=== PATIENT | male | born 1980 | race African-American/Black ===

== ENCOUNTER 2019-07-25 02:19 | Inpatient (IN) ==
[2019-07-25] MEDS ORDERED: TORADOL IV ONE (02:57)
[2019-07-25] MEDS ORDERED: CLINDAMYCIN 900 MG/NS 900 MG/50 ML IVPB IV ONE (02:57)
[2019-07-25] MEDS ORDERED: TYLENOL PO ONE (02:57)
[2019-07-25] MEDS ORDERED: CLINDAMYCIN 900 MG/D5W 900 MG/50 ML IVPB IV ONE (03:15)
[2019-07-25 03:43] LABS: BASO# 0.01 X1000 (0.0-0.2); BASO% 0.1 % (0.0-0.8); EOS# 0.07 X1000 (0.0-0.7); EOS% 0.5 % (0.0-10.0); HEMATOCRIT 41.3 % (42.0-52.0); HEMOGLOBIN 13.7 g/dL (14.0-18.0); IMM GRAN# 0.04 X1000 (0.0-0.04); IMM GRAN% 0.3 % (0.0-0.5); LYMPH# 0.72 X1000 (1.2-3.4); LYMPH% 5.1 % (20.5-51.1); MCH 27.5 PG (27-31); MCHC 33.2 g/dL (33-37); MCV 82.8 FL (81-99); MONO# 1.72 X1000 (0.11-0.59); MONO% 12.1 % (1.7-9.3); MPV 10.5 FL (7.4-10.4); NEUT# 11.61 X1000 (1.4-6.5); NEUT% 81.9 % (42.2-75.2); PLT 188 X1000 (130-400); RBC 4.99 XMIL (4.7-6.1); RDW 12.2 % (11.5-14.5); WBC 14.17 X1000 (4.8-10.8)
[2019-07-25 04:08] LABS: AGAP 10; BUN 8 mg/dL (8-22); CALCIUM 9.2 mg/dL (8.8-10.2); CHLORIDE 102 mmol/L (98-107); COSMO 271; ESTIMATED GFR > 60; GLUCOSE 120 mg/dL (70-104); POTASSIUM 4.3 mmol/L (3.5-5.1); SODIUM 136 mmol/L (136-145); TCO2 24 mmol/L (25-35)
[2019-07-25] MEDS ORDERED: ZOFRAN IV ONE (04:20)
[2019-07-25] MEDS ORDERED: MORPHINE IV ONE (04:20)
[2019-07-25] MEDS ORDERED: VANCOMYCIN 1 GM/NS 1 GM/250 ML IVPB IV ONE (04:20)
[2019-07-25] MEDS ORDERED: NS 1,000 ML IV ONE (04:21)
--- NOTE | 2019-07-25 04:22 | PROVIDER DOCUMENTATION ---
HPI-Musculoskeletal Pain/Inj - GENERAL Chief Complaint: Extremity Pain Stated Complaint: ARM INJURY Time Seen by Provider: 07/25/19 02:48 Source: patient - HX OF PRESENT ILLNESS-MUSKULOSKELTAL Nature of Presenting Problem: Patient begain with fever/chills and ST 2-3 days ago, then developed left wrist pain and swelling. Initially, he went to urgent care, where they diagnosed him influenza without doing any swabs/labs. He then went to [facility] ER yesterday morning, had a workup including swabs/labs/CXR and was diagnosed as cellulitis to left wrist and was placed on keflex. He states his wrist has gotten more swollen and he continue to have ST, fever/chills/body aches. He has no known exposure to Covid 19. Stopped taking Tamiflu the day of his visit to [place]. He is right hand dominant, has no history of trauma or injury to left hand/arm. Denies IVDA. Denies penile discharge. Has never had these symptoms before. No other joint pain/swelling. He had blood cultures x 2 done at [place] yesterday morning. Quality of Pain: reports: aching, sharp Severity in ED: severe Onset/Duration: gradual, 2 days ago Timing: still present, constant, getting worse Modifying Factors: improves with: immobilization. worse with: movement, palpation Any recent injury?: No Locality of Occurance: Home Similar Symptoms Previously?: No Recently seen or treated by another doctor?: Yes (Urgent care and [facility]) Review of Systems - Adult - REVIEW OF SYSTEMS - ADULT Constitutional: reports: see HPI, chills, fever Eyes: reports: no symptoms reported Ears, Nose, Mouth & Throat: reports: see HPI, throat pain. denies: hoarseness, throat swelling Cardiovascular: reports: no symptoms reported Respiratory: reports: no symptoms reported Gastrointestinal: reports: no symptoms reported Genitourinary: reports: no symptoms reported. denies: dysuria, discharge, other (no STDs) Musculoskeletal: reports: see HPI, joint pain (left wrist), joint swelling (left wrist), muscle aches. denies: bone pain, back pain, frequent leg cramps, muscle weakness, neck pain Integumentary: reports: no symptoms reported Neurological: reports: no symptoms reported Psychiatric: reports: no symptoms reported Endocrine: reports: no symptoms reported Hematologic/Lymphatic: reports: no symptoms reported Allergic/Immunologic: reports: no symptoms reported All Other Systems: Reviewed and Negative Past History - Adult - PAST MEDICAL HISTORY-ADULT Review of Records: reports: Old Records Reviewed (Mostly from yesterday's visit to [facility], normal labs, normal CXR, negative strep and flu. Blood cultures checked and are currently negative.), Nursing Assessment Review, Medications Reviewed, Social history reviewed & non-contributory. Major Childhood Illnesses: reports: denies history Cardiovascular: reports: denies history Respiratory: reports: denies history Gastrointestinal: reports: denies history Obstetrical/Gynecological: reports: denies history Genitourinary: reports: denies history Musculoskeletal: reports: denies history Neurological: reports: headaches/migraines Endocrine/Immune: reports: denies history Other Conditions: reports: denies history - PRIOR SURGERIES/PROCEDURES Surgical/Procedure History: reports: none - FAMILY HISTORY Family History: HTN Physical Exam-Injury Related - Physical Exam-Injury Related Initial Vital Signs Reviewed: Yes (febrile, ow/ normal) General Appearance: appears well, alert, no apparent distress (but uncomfortable appearing) Eyes: PERRL/EOMI, pink conjunctivae Head, Ears, Nose, Mouth & Throat: normocephalic/atraumatic, moist mucous membranes, pharyngeal erythema Neck: full range of motion, supple, normal inspection. negative: pain on move ment Respiratory: chest non-tender, lungs clear, normal breath sounds, no pleuratic chest pain, no respiratory distress, no accessory muscle use Cardiovascular: normal peripheral pulses, regular rate, rhythm, no edema, no gallop, no JVD, no murmur Peripheral Pulses: radial (R): 2+, radial (L): 2+ Abdominal Exam: non tender, soft. negative: distended Lymphatic: no adenopathy Back Exam: normal inspection, no CVA tenderness, no vertebral tenderness. negative: decreased range of motion Extremity: normal gait, no pedal edema, no calf tenderness, normal capillary refill, erythema (left wrist/dorsum of hand), inflammation, joint effusion (left wrist), tenderness (with any palpation or range of motion to left wrist, hand and fingers.). negative: pulse deficit, slow capillary refill Integumentary: normal color, warm/dry Neurologic: pants closer II-XII nml as tested, grossly normal, no motor/sensory deficits Psych/Mental Status: normal mood/affect, normal thought content, normal thought process, oriented x 3 - Glascow Coma Score Best Eye Response ([place]): (4) open spontaneously Best Verbal Response ([place]): (5) oriented Best Motor Response ([place]): (6) obeys commands Progress - PLAN OF CARE/RESULTS Progress/Plan/Lab Results: Vital Signs - 8 hr 07/25/19 02:26 Temperature 101.6 F H Pulse Rate 88 Respiratory Rate 15 Blood Pressure 136/90 O2 Sat by Pulse Oximetry 100 Laboratory Results - last 24 hr 07/25/19 07/25/19 07/25/19 03:13 03:13 03:13 WBC 14.17 H RBC 4.99 Hgb 13.7 L Hct 41.3 L MCV 82.8 MCH 27.5 MCHC 33.2 RDW Std Deviation 12.2 Plt Count 188 MPV 10.5 H Immature Gran % (Auto) 0.3 Neut % (Auto) 81.9 H Lymph % (Auto) 5.1 L Randolph % (Auto) 12.1 H Eos % (Auto) 0.5 Baso % (Auto) 0.1 Immature Gran # (Auto) 0.04 Neut # (Auto) 11.61 H Lymph # (Auto) 0.72 L Randolph # (Auto) 1.72 H Eos # (Auto) 0.07 Baso # (Auto) 0.01 Sodium 136 Potassium 4.3 D Chloride 102 Carbon Dioxide 24 L Anion Gap 10 BUN 8 Creatinine 1.0 Estimated GFR/1.73 m2 > 60 BUN/Creatinine Ratio 8 Glucose 120 H Calculated Osmolality 271 Calcium 9.2 C-Reactive Prot, Quant 176.41 H Plasma Lactate 07/25/19 03:13 WBC RBC Hgb Hct MCV MCH MCHC RDW Std Deviation Plt Count MPV Immature Gran % (Auto) Neut % (Auto) Lymph % (Auto) Randolph % (Auto) Eos % (Auto) Baso % (Auto) Immature Gran # (Auto) Neut # (Auto) Lymph # (Auto) Randolph # (Auto) Eos # (Auto) Baso # (Auto) Sodium Potassium Chloride Carbon Dioxide Anion Gap BUN Creatinine Estimated GFR/1.73 m2 BUN/Creatinine Ratio Glucose Calculated Osmolality Calcium C-Reactive Prot, Quant Plasma Lactate 1.3 Orders Category Date Time Status Saline Loc NOW Care 07/25/19 02:57 Active WRIST COMPLETE LEFT [RAD] Stat Exams 07/25/19 02:40 Taken BMP [BASIC METABOLIC PANEL] [CHEM] Stat Lab 07/25/19 03:13 Completed C REACTIVE PROT QUANT [CHEM] Stat Lab 07/25/19 03:13 Completed CBC WITH ELECTRONIC DIFF [HEME] Stat Lab 07/25/19 03:13 Completed CHLAMYDIA AND GC BY PCR URINE [HH] Stat Lab 07/25/19 04:58 Received LACTATE, PLASMA [CHEM] Stat Lab 07/25/19 03:13 Completed URINALYSIS W/POSS RFLX CULT [URINALYSIS] Stat Lab 07/25/19 04:21 Uncollected 0.9% Sodium Chloride Inj [Ns] 1,000 ml Med 07/25/19 04:21 Discontinued IV 999 mls/hr Acetaminophen [Tylenol] Med 07/25/19 02:57 Discontinued 1,000 mg PO NOW ONE Clindamycin 900 mg/D5w Med 07/25/19 03:15 Discontinued 900 mg in 50 ml IV NOW Ketorolac [Toradol] Med 07/25/19 02:57 Discontinued 30 mg IV NOW ONE Morphine Med 07/25/19 04:20 Discontinued 4 mg IV NOW ONE Ondansetron [Zofran] Med 07/25/19 04:20 Discontinued 4 mg IV NOW ONE Vancomycin 1 gm/Ns Med 07/25/19 04:20 Discontinued 1 gm in 250 ml IV NOW Result Diagrams: 07/25/19 03:13 07/25/19 03:13 - REASSESSMENT Reassessment #1 Time Reassessed: 04:52 Status: improving (After IVF bolus. Also given acetaminophen for fever, IV toradol, morphine/zofran and IV vanc/clindamycin. Blood cultures not repeated since they are already in lab. Will ask hospitalist to admit with orthopedic consultaiton) - XRAY 1 XRAY: Left XRAY Study: Wrist Impression: Abnormal (mild STS, no gas, no fracture, no FB. Read by me at 0400) - CONSULTS/PCP/HOSPITALIST Notification #1 *Consult/PCP/Hospitalist*: Adi paged [phone] Time Discussed: 05:34 Consult Disposition: Will see in ED, Admit #2 Consult: Tisha paged [phone] Time Discussed: 05:39 Consult Disposition: other (will see in consult) Departure - Departure Date of Disposition Decision: 07/25/19 Time of Disposition Decision: 04:53 DIAGNOSIS: Fever in adult, Cellulitis of left wrist Septic arthritis of wrist, left Qualifiers: Septic arthritis organism: due to unspecified organism Qualified Code(s): M00.9 - Pyogenic arthritis, unspecified Disposition: ADMITTED INPATIENT 09 Certified Medical Emergency: Emergent Condition: Fair Referrals and Follow-Ups: Vaibhav Rangel MD [Primary Care Provider] - - Critical Care Note This patient required my direct & personal management of CC.: No Attestation - Physician/ KEAGAN Attestation Patient care was provided by Advanced Practice Provider:: No The physician spent face to face time with patient:: Yes Advanced Practice Provider documentation review:: Supervising physician onsite and consulted in the evaluation and care of this patient. The physician did have a face to face encounter with the patient.
--- NOTE | 2019-07-25 06:05 | Diag Imaging Result Doc PS360 ---
EXAM: WRIST COMPLETE LEFT HISTORY: swelling TECHNIQUE: Three views COMPARISON: None. FINDINGS: No fracture. No dislocation. No prominent joint space narrowing. IMPRESSION: No acute bony injury. Electronically signed by Fei Galan 07/25/2019 6:02 AM
--- NOTE | 2019-07-25 07:56 | HISTORY AND PHYSICAL ---
PRIMARY CARE PROVIDER: Dr. Vaibhav Rangel. DATE AND TIME: 07/25/2019 at 0550. CHIEF COMPLAINT: Left arm pain. HISTORY OF PRESENT ILLNESS: Mr. Hernandez is a 39-year-old male who presented to the ER this evening with complaints of left arm pain and swelling. The patient states that 2 days ago on Sunday, that would be 07/21 that he began having some swelling and erythema of his left wrist. He also reports at that time that he did have fever, body aches, and chills. According to the ER note from 07/23, he reported at that time that he was having a sore throat though the patient did not report that to us this evening. He denied having any headache, cough, shortness of breath, or respiratory symptoms. He stated on Sunday that he did go to Urgent Care, and they did not swab him for the flu though diagnosed him with the flu and gave him a prescription for Tamiflu. The patient's hand did continue to have worsening swelling and erythema. He also reported that he had one vomiting episode after being given a prescription for Tamiflu. He reported that he took the medicine, became nauseous, and vomited. Due to his worsening symptoms, he did present to the ER on 07/23, which would be yesterday on early in the morning at 0454 with similar symptoms of left wrist pain, swelling, erythema, fever, body aches, and chills. He was given a prescription for Keflex, and was discharged home. They did test him for influenza and strep, which were both negative. The patient reports that he did stop taking the Tamiflu after he tested negative for the flu when he was seen at [place]. He presents today with continued symptoms of left arm pain, swelling, erythema, as well as fever, body aches, and chills. He denies any injury to his left hand. He denies any recent wounds, abrasions, lacerations, or any bites of any kind. He denies any insect, animal, or human bite. He also denies any recent IV or blood venous draws from his hand as well. He denies any headache or dizziness. He also denies any chest pain, cough, respiratory symptoms, or shortness of breath. He denies any abdominal pain. He denies any nausea, vomiting, or diarrhea at present. He denies any dysuria. Other than his left hand pain, swelling, and erythema, he denies any other pain, numbness, tingling or swelling is in his other extremities. Upon evaluation in the ER, they did perform a CBC, which did show leukocytosis with white blood cell count of 14,170. Chemistries were pretty unremarkable except for that his C-reactive protein was 176.41. He did have a temperature of 101.6 degrees in the ER. Blood cultures have been ordered. He has been given initial antibiotics of clindamycin and vancomycin. Pending diagnostic studies at this time include chlamydia and GC by PCR urine as well as urinalysis with possible reflex culture. The patient was sitting up in bed and was nontoxic in appearance. He was awake, alert, and able to answer questions appropriately and follow commands appropriately. He denies any recent travel out of the country, state, or even out of the formerly [facility]. He denies being around anyone with flu-like or respiratory symptoms, or anyone who has been exposed to or has been diagnosed with COVID 19. The patient will be placed on the medical floor with telemetry. REVIEW OF SYSTEMS: A 14 point review of systems was conducted with the patient. All were negative except for pertinent positives mentioned above in HPI. PAST MEDICAL HISTORY: The patient denies any medical problems. PAST SURGICAL HISTORY: The patient denies any previous surgeries. SOCIAL HISTORY: The patient reports he smokes half a pack of cigarettes per day, and has done so for 3 years. He only reports occasional alcohol use. He denies any illicit drug use. FAMILY HISTORY: Positive for his mother having a history of hypertension. ALLERGIES: Patient reports no known allergies. HOME MEDICATIONS: The patient denies any regular home medication or prescription use. DIAGNOSTIC DATA: [place] [address], hemoglobin 13.7, hematocrit 41.3, and platelet count is 188,000. Sodium 136, potassium 4.3, chloride 102, serum bicarbonate is 24, BUN 8, and creatinine 1. GFR is greater than 60, glucose 120, and calcium 9.2. C-reactive protein is 176.41. Plasma lactate is 1.3. Left wrist x-ray showed no acute bony injury. PHYSICAL EXAMINATION: VITAL SIGNS: Heart rate 88, respirations 15, blood pressure 136/90, and oxygen saturation is 100% on room air. GENERAL: Mr. Hernandez is a pleasant 39-year-old male who is resting on the ER stretcher. He is in no acute distress. He was awake, alert, and able to answer questions appropriately. HEENT: Head is atraumatic, normocephalic. Pupils equal, round, and reactive to light. Oral mucosa moist. Oropharynx clear. Oral mucosa is moist. NECK: Supple. Trachea midline. CARDIOVASCULAR: Patient has S1-S2 present. No murmurs, gallops, or rubs appreciated with a regular rate and rhythm. PULMONARY: Patient has symmetrical chest expansion bilaterally. Lung sounds are clear to auscultation in bilateral full jacob. ABDOMEN: Soft, nontender, and nondistended. Bowel sounds are present in all 4 quadrants, and were normoactive. EXTREMITIES: No cyanosis noted. The patient does have erythema and swelling noted to his left wrist and proximal hand. This area is warm to the touch. He did report pain and tenderness upon palpation. Though capillary refill distal to this area in his nail bed of his left fingers was less than 3. Radial and pedal pulses are 2+ bilaterally. Pulse, motor and sensory is intact in all extremities. The patient can move his fingers and does have good sensation intact in his left hand distal to area of swelling and erythema. INTEGUMENTARY: The patient's skin is pink, warm, and dry. He does have the area of erythema which is noted and described in the above extremities exam. NEUROLOGICAL: Patient is alert and oriented to person, place, time, and situation. There are no focal neurological deficits noted. ASSESSMENT AND PLAN: 1. Cellulitis of the left hand/wrist. For this, blood cultures have been obtained. We will place him with antibiotic coverage of vancomycin IV. We have placed orders for the area of erythema to be outlined with a surgical pen so that we can monitor his erythema and swelling. We will provide p.r.n. pain medication of Toradol IV. We will provide p.r.n. antiemetics with Phenergan. We will provide some gentle intravenous hydration with normal saline at 125 mL/h. 2. Leukocytosis. This is likely secondary to his cellulitis. We will continue treatment as mentioned above in #1. We will continue to rule out other sources of infection. 3. Nicotine dependence. We will continue to application counselor the patient on the importance of smoking cessation throughout his admission and upon discharge. 4. Resuscitation status. We did discuss with the patient his wishes for his resuscitation status. He does wish to place to full code. Orders for this have been placed in the patient's chart. 5. Deep vein thrombosis prophylaxis is provided with Lovenox 40 mg subcutaneous q.24 hours. The patient will be placed on the medical floor of telemetry. He will have vital signs q.8 hours. He will be on a regular diet. We will do strict intake and output. We will repeat a CBC and BMP tomorrow morning. We have ordered a hemoglobin A1c given the patient's glucose was elevated at 120. Further orders and recommendations pending hospital course, diagnostic studies, and physician evaluation. Dictated by STEPHANY Power for Alonso Waggoner MD cc: Vaibhav Rangel MD MTDD
[2019-07-25] MEDS ORDERED: VANCOMYCIN IV PER PHARMACY MISC SCH (08:02)
[2019-07-25] MEDS ORDERED: SODIUM CHLORIDE 0.9% INJ PRN (08:02)
[2019-07-25] MEDS ORDERED: NS 1,000 ML IV SCH (08:02)
[2019-07-25] MEDS ORDERED: PHENERGAN IV PRN (08:02)
[2019-07-25 08:20] LABS: HEMOGLOBIN A1C 5.6 % (4.8-6.0)
[2019-07-25] MEDS: ROCEPHIN 1 GM in NS 50 ML IV SCH (08:58)
[2019-07-25] MEDS: LOVENOX SUBQ SCH (08:58)
[2019-07-25] MEDS: TORADOL IV PRN (08:59)
[2019-07-25] MEDS ORDERED: NORCO-7.5 PO PRN (11:23)
[2019-07-25 11:48] LABS: URINE SOURCE CLEAN CATCH
[2019-07-25 11:54] LABS: BILIRUBIN URINE NEGATIVE (NEGATIVE); BLOOD URINE NEGATIVE (NEGATIVE); COLOR YELLOW; GLUCOSE URINE NEGATIVE (NEGATIVE); KETONE URINE NEGATIVE (NEGATIVE); LEUKOCYTES URINE NEGATIVE (NEGATIVE); NITRITE URINE NEGATIVE (NEGATIVE); PH URINE 6.5; PROTEIN URINE TRACE mg/dL (NEGATIVE); SP GRAVITY URINE 1.016; TURBIDITY URINE CLEAR (CLEAR); UROBILINOGEN URINE 2 mg/dL (NORMAL)
[2019-07-25 11:55] LABS: UR EPITHELIAL CELLS <10 /HPF (<10); URINE BACTERIA NEGATIVE /HPF; URINE WBC <10 /HPF (<10)
[2019-07-25 12:08] LABS: UR AMPHETAMINES QUAL NONE DETECTED (NONE DETECT); UR BARBITUATES QUAL NONE DETECTED (NONE DETECT); UR BENZODIAZEPIN QUAL NONE DETECTED (NONE DETECT); UR CANNABINOIDS QUAL NONE DETECTED (NONE DETECT); UR COCAINE QUAL NONE DETECTED (NONE DETECT); UR METHADONE QUAL NONE DETECTED (NONE DETECT); UR OPIATES QUAL PRESUMPTIVE POSITIVE (NONE DETECT); UR OXYCODONE QUAL NONE DETECTED (NONE DETECT); UR PCP QUAL NONE DETECTED (NONE DETECT)
[2019-07-25] MEDS: VANCOMYCIN 2 GM in NS 500 ML IV SCH ×2 (12:56→23:59)
--- NOTE | 2019-07-25 13:04 | PROGRESS NOTE ---
DATE: 07/25/2019 INTERVAL HISTORY: The patient still with pretty significant left wrist/hand pain. Left dorsal wrist erythematous from just proximal to the wrist to just proximal to the fingers. Exquisitely tender on squeeze of the wrist. Slightly tender on squeeze of the more distal hand. No clear fluctuance or induration. The patient reports pain but no other issues currently. Denies any respiratory symptoms. We will continue antibiotics with vancomycin and Rocephin. Orthopedic Surgery consulted on admission to evaluate the joint, but I doubt that he has enough fluid on there for them to tap. We will see if they have any further recommendations. The patient's flu test was negative, so we will not continue Tamiflu. [facility]
[2019-07-25] MEDS: PERCOCET-10 PO PRN ×2 (14:28→19:57)
[2019-07-26] MEDS: PERCOCET-10 PO PRN ×6 (00:19→22:31)
[2019-07-26 07:31] LABS: HEMATOCRIT 36.6 % (42.0-52.0); HEMOGLOBIN 12.2 g/dL (14.0-18.0); MCHC 33.3 g/dL (33-37); MCV 83.9 FL (81-99); MPV 9.6 FL (7.4-10.4); RBC 4.36 XMIL (4.7-6.1); RDW 12.5 % (11.5-14.5); WBC 11.8 X1000 (4.8-10.8)
[2019-07-26 07:53] LABS: AGAP 8; BUN 9 mg/dL (8-22); CALCIUM 8.8 mg/dL (8.8-10.2); CHLORIDE 99 mmol/L (98-107); COSMO 269; CREATININE 0.8 mg/dL (0.7-1.2); ESTIMATED GFR > 60; GLUCOSE 102 mg/dL (70-104); POTASSIUM 3.9 mmol/L (3.5-5.1); SODIUM 135 mmol/L (136-145); TCO2 28 mmol/L (25-35)
[2019-07-26] MEDS: LOVENOX SUBQ SCH (08:19)
[2019-07-26] MEDS: ROCEPHIN 1 GM in NS 50 ML IV SCH (08:19)
[2019-07-26] MEDS: VANCOMYCIN 2 GM in NS 500 ML IV SCH ×2 (12:08→22:50)
[2019-07-26] MEDS: ZOSYN 3.375 GM in NS 50 ML IV SCH ×3 (12:08→22:49)
--- NOTE | 2019-07-26 12:45 | PROGRESS NOTE ---
DATE: 07/26/2019 INTERVAL HISTORY: Patient is complaining of increased left hand swelling. Pain roughly similar to yesterday and adequately controlled with Percocet. Afebrile overnight and no new complaints. REVIEW OF SYSTEMS: Twelve point review of systems negative except as per interval history. LABORATORY DATA: WBC 11.8, hemoglobin 12.2, hematocrit 36.6, platelets 189,000. Sodium 135, potassium 3.8, BUN 9, creatinine 0.8. VITAL SIGNS: T-max 99.2 degrees, pulse 90, respirations 16, blood pressure 123/79, O2 saturation 98% on room air. PHYSICAL EXAMINATION: General: No acute distress. Vital signs: As above. HEENT: Normocephalic, atraumatic. Moist mucous membranes. No cervical adenopathy. Cardiovascular: Regular rate and rhythm. No murmurs noted. Pulmonary: Clear to auscultation bilaterally. No wheezing, rales, or rhonchi. Abdomen: Soft, nontender, nondistended. Bowel sounds positive. Extremities: Peripheral pulses intact. No clubbing or cyanosis. Continued area of erythema on the left dorsal hand from just proximal to the wrist to approximately the first knuckle of the fingers. The area of erythema has not really changed, but it is more edematous. No discrete fluid pocket identified. Continues to have pain with squeeze of wrist joint and to a lesser extent, the MCP joints. Neurologic: Cranial nerves grossly intact. No focal deficits. Psychiatric: Normal mood and affect. Awake, alert, oriented x3. ASSESSMENT AND PLAN: 1. Left hand cellulitis, possible left wrist pyogenic arthritis. The patient admitted with left hand erythema, warmth, swelling. The area of erythema is no worse today but he is little more swollen. Tenderness about the same. We will go ahead and change Rocephin to Zosyn. We will continue vancomycin. Per the ER note, Orthopedics was supposedly contacted from the ED, but I have not seen any notes from them so this may have been in error. We will go ahead and place a consult to them to make sure they do not think he needs needle aspiration or operative intervention. 2. Tobacco use. Patient has been counseled on cessation. He denies the need for a nicotine patch. 3. Hyperglycemia, likely reactive postprandial as the patient's A1c was within normal limits.
[2019-07-26] MEDS: TORADOL IV PRN (21:17)
--- NOTE | 2019-07-26 21:42 | CONSULTATION ---
DATE OF CONSULTATION: 07/25/2019 CHIEF COMPLAINT: Left hand cellulitis. HISTORY: 39-year-old black male who was admitted through the emergency department on Sunday for evaluation of his left hand. The patient states that he initially started having fever and body aches, chills but no cough or shortness of breath and was seen in Urgent Care where he tested positive for type A flu. He was started on Tamiflu but continued to feel bad and later was seen at [place] where he had repeat testing done and was found to be negative for the flu. He was started on Keflex because of left hand cellulitis. That had worsened and he was ultimately admitted to the hospital admitted on IV vancomycin. He feels like that he has not significantly improved. He does have swelling on the dorsum of his hand. His C-reactive protein is 176. He was noted to be febrile in the ER. PAST MEDICAL HISTORY: None. PAST SURGICAL HISTORY: None. ALLERGIES: None reported. FAMILY HISTORY/SOCIAL HISTORY: Mother has hypertension. The patient does not report any exposure to COVID-19. He does smoke half pack cigarettes a day for the last 3 to 4 years. Occasional alcohol. No illicit drug use reported. EXAM: Pleasant male who is in no distress. He has ear buds in his ear when I entered the room was watching movie on his phone. HEENT: Conjunctivae pink. Mucous membranes are moist. His neck is supple without JVD. Heart is regular with a controlled rate. Respirations are nonlabored. His abdomen is soft. His left hand does reveal soft tissue swelling on the dorsum of his hand. He has no tenderness along his flexor tendons. There is no signs of flexor tenosynovitis. He has no pain to palpation of the thenar and hypothenar areas of his volar aspect of his hand. The soft tissue swelling is confined to the dorsum of his hand. It extends to the level of the wrist but not above. There is some warmth and cellulitis changes about this area. His fingers are swollen but I can fully extend all digits. He does have difficulty with complete flexion. ASSESSMENT/PLAN: Left hand cellulitis on the dorsum of the hand. He has some bonner around the redness. He has not spread outside this area. He is currently on vancomycin as well as clindamycin. I would like to get an MRI of his hand to evaluate for an abscess to see if there is anything that is drainable. This order will be placed and await results. Continue antibiotics. cc: Thierno Bhagat, DO
--- NOTE | 2019-07-26 22:52 | HISTORY AND PHYSICAL ---
ADDENDUM CHIEF COMPLAINT: Left forearm pain. HISTORY OF PRESENT ILLNESS: Patient is a 39-year-old who described left forearm pain that started of 2 days duration. Also with associated redness as well and swelling of that left arm. Denies any swelling in other parts of the body. Denies any history of trauma. Denies any prior wound or discharge Patient denies any previous history of similar illness. Agree with history and physical note done by nurse practitioner and also other parts of the history and physical dictated by the nurse practitioner. PHYSICAL EXAMINATION: GENERAL: A middle-aged man in no acute respiratory distress. HEENT: Not pale. Anicteric. CARDIOVASCULAR: S1, S2 heard. No murmurs, rubs or gallop. LUNGS: Good entry bilaterally. No wheeze. No crepitations or added sound. EXTREMITIES: The left arm there is swelling at the left forearm from over the wrist extending proximally to the lower third of the forearm. There is erythema around the area. It is tender to touch as well. ASSESSMENT: A 39 year old who presented with left forearm pain of 2 days duration. Examination shows left forearm redness, swelling and tenderness. ACUTE DIAGNOSIS: Cellulitis of the left forearm over the wrist area. PLAN: Start patient on IV antibiotics, IV vancomycin. I expect improvement in leukocytosis with IV antibiotics. We will jae the area of the cellulitis. There does not appear to be any drainable abscess or fluid at this time. As such, do not think Orthopedics would be able to contribute anything additional to the management of the patient. However, ER physician already consulted Orthopedics before hospitalist team was called. We will continue patient's other home medications. We will also hydrate patient as well gentle hydration with IV fluid DVT prophylaxis is Lovenox. CODE STATUS: Full code. DISPOSITION: Admit patient to med-surg. We will discharge when medically stable. [facility]
[2019-07-27] MEDS: TORADOL IV PRN (01:47)
[2019-07-27] MEDS: PERCOCET-10 PO PRN ×5 (02:55→22:44)
[2019-07-27] MEDS: ZOSYN 3.375 GM in NS 50 ML IV SCH ×4 (05:01→22:44)
[2019-07-27 07:50] LABS: BASO# 0.04 X1000 (0.0-0.2); BASO% 0.4 % (0.0-0.8); EOS# 0.26 X1000 (0.0-0.7); EOS% 2.9 % (0.0-10.0); HEMATOCRIT 38.7 % (42.0-52.0); HEMOGLOBIN 12.8 g/dL (14.0-18.0); IMM GRAN# 0.03 X1000 (0.0-0.04); IMM GRAN% 0.3 % (0.0-0.5); LYMPH# 0.88 X1000 (1.2-3.4); LYMPH% 9.8 % (20.5-51.1); MCH 27.7 PG (27-31); MCHC 33.1 g/dL (33-37); MCV 83.8 FL (81-99); MONO# 1.09 X1000 (0.11-0.59); MONO% 12.2 % (1.7-9.3); MPV 9.7 FL (7.4-10.4); NEUT# 6.65 X1000 (1.4-6.5); NEUT% 74.4 % (42.2-75.2); PLT 263 X1000 (130-400); RBC 4.62 XMIL (4.7-6.1); RDW 12.5 % (11.5-14.5); WBC 8.95 X1000 (4.8-10.8)
[2019-07-27 07:58] LABS: AGAP 12; BUN 7 mg/dL (8-22); CALCIUM 8.7 mg/dL (8.8-10.2); CHLORIDE 101 mmol/L (98-107); COSMO 275; CREATININE 0.9 mg/dL (0.7-1.2); ESTIMATED GFR > 60; GLUCOSE 84 mg/dL (70-104); POTASSIUM 3.7 mmol/L (3.5-5.1); SODIUM 139 mmol/L (136-145); TCO2 26 mmol/L (25-35)
[2019-07-27] MEDS: LOVENOX SUBQ SCH (08:59)
[2019-07-27] MEDS ORDERED: MORPHINE IV PRN (11:21)
[2019-07-27] MEDS: VANCOMYCIN 2 GM in NS 500 ML IV SCH ×2 (12:39→23:33)
--- NOTE | 2019-07-27 13:43 | PROGRESS NOTE ---
DATE: 07/27/2019 INTERVAL HISTORY: Patient with no further fever but does have increased swelling of the left hand. Pain is similar and reasonably well controlled for the most part with occasional flare. No new complaints. REVIEW OF SYSTEMS: Twelve point review of systems negative except as per interval history. LABS: WBC 8.9, hemoglobin 12.8, hematocrit 38.7, platelets 263,000. Sodium 139, potassium 3.7, BUN 7, creatinine 0.9, glucose 112. VITAL SIGNS: T-max 98.6 degrees, pulse 84, respirations 20, blood pressure 145/82, O2 saturation 96% on room air. PHYSICAL EXAMINATION: General: No acute distress. Vitals: As above. HEENT: Normocephalic, atraumatic. Moist mucous membranes. No cervical adenopathy. Cardiovascular: Regular rate and rhythm. No murmurs noted. Pulmonary: Clear to auscultation bilaterally. No wheezing, rales, or rhonchi. Abdomen: Soft, nontender, nondistended. Bowel sounds positive. Extremities: Peripheral pulses intact. No clubbing or cyanosis. Still some erythema on the dorsum of the left hand. The erythema is perhaps slightly less than previous. It does appear to be further from the wrist. However, his edema is significantly increased. The edematous area is now involving more of the palm with some slight extension up into the forearm. Tenderness to palpation is similar to previous. Neurologic: Cranial nerves grossly intact. No focal deficits. Psychiatric: Normal mood and affect. Awake, alert, and oriented x3. ASSESSMENT AND PLAN: 1. Left hand cellulitis, possible left wrist pyogenic arthritis and/or abscess. The patient was admitted with left hand erythema, warmth, and swelling. The erythema is similar to slightly improved from previous but he has significantly more edema. Orthopedics involved and plans on MRI in the morning. Based on the results of that and his response to therapy, they may or may not take him to surgery tomorrow. Initially placed on vancomycin and Rocephin. Change to vancomycin and Zosyn. If he continues to worsen, we will likely change vancomycin to Zyvox. 2. Tobacco use. Patient has been counseled on cessation. Denies nicotine patch. 3. Hyperglycemia. A1c within normal limits. Likely reactive to infection.
[2019-07-28] MEDS: PERCOCET-10 PO PRN ×3 (03:54→22:02)
[2019-07-28] MEDS: ZOSYN 3.375 GM in NS 50 ML IV SCH ×4 (05:36→21:58)
--- NOTE | 2019-07-28 09:27 | Diag Imaging Result Doc PS360 ---
EXAM: MRI UPPER EXT W/O CONTRA-LEFT 07/26/2019 HISTORY: suspected abcess dorsum left hand TECHNIQUE: Coronal proton density fat sat, T1 fat sat, 3-D merge, axial proton density fat sat and T1 fat sat, sagittal STIR. COMMENT: There is an apparent cyst in the head of the third metacarpal. There is no evidence of abnormal fluid collection in the soft tissues of the dorsum of the hand. There does appear to be some soft tissue swelling. IMPRESSION: No evidence of abscess. Electronically signed by Chris Gallardo 07/28/2019 9:24 AM
--- NOTE | 2019-07-28 09:31 | Diag Imaging Result Doc PS360 ---
EXAM: MRI UPPER EXT JT W/O CON-LEFT 07/26/2019 HISTORY: Abcess left hand , can be done on Sunday, TECHNIQUE: Coronal proton density, T1 fat sat, axial proton density and T1 fat sat, sagittal STIR. COMMENT: There is a bone island in the scaphoid and a cyst in the lateral scaphoid. There may be a central perforation of the triangular fibrocartilage. There is an apparent effusion in the distal radial ulnar joint. There is generalized subcutaneous edema without a focal fluid collection to suggest an abscess. There is an apparent effusion in the mid carpal joint. The possibility of perforation or tear in one of the interosseous ligaments in the proximal carpal row is suggested. There is no evidence of bone marrow edema. IMPRESSION: Generalized soft tissue swelling/edema in the subcutaneous fat. The possibility of cellulitis cannot be excluded. Effusions in the distal radial ulnar joint and carpal joints. Electronically signed by Chris Gallardo 07/28/2019 9:29 AM
[2019-07-28] MEDS: VANCOMYCIN 2 GM in NS 500 ML IV SCH ×2 (11:29→21:58)
--- NOTE | 2019-07-28 12:28 | ORTHOPAEDICS PROGRESS NOTE ---
DATE: 07/28/2019 SUBJECTIVE: Mr. Hernandez was admitted on 07/25/2019 after developing a fever and cellulitis of his left hand. Dr. Bhagat saw him over the weekend and ordered an MRI of his upper extremity, which revealed soft tissue swelling in the subcutaneous fat, as well as effusions of the distal radioulnar joint and carpal joints. Dr. Giles evaluated the patient this morning and is taking him to the OR this evening for an incision and drainage of this area. OBJECTIVE: Mr. Hernandez is standing at the bedside at this time. He is in no acute distress. His left hand is edematous and some erythema is noted that is to the dorsum hand extending all the way to the palmar surface of his hand. He does have active flexion and extension of his fingers, though this is restricted due to the amount of swelling that is present. His sensation is intact and his capillary refill is less than 2 seconds. There is a marked area from previous to show where the area of erythema was, and this does not seem to have improved any. ASSESSMENT: Left hand cellulitis with possible arthritis versus abscess. PLAN: Dr. Giles is taking him to the operating room today for incision and drainage of this left hand/wrist. Risks and benefits of the surgery were discussed with the patient by Dr. Giles. Dictated by STEPHANY Houser for Todd Giles MD cc: Todd Giles MD
[2019-07-28] MEDS ORDERED: MORPHINE IV PRN (14:18)
--- NOTE | 2019-07-28 14:33 | OPERATIVE NOTE ---
PROCEDURE DATE: 07/28/2019 PREOPERATIVE DIAGNOSIS: Left hand and wrist cellulitis. POSTOPERATIVE DIAGNOSIS: Left hand and wrist cellulitis with wrist septic joint. PROCEDURE: Irrigation and debridement of left dorsal wrist and hand. ANESTHESIA: General. SURGEON: Todd Giles MD. EXHIBITS MANAGER: Ludivina. COMPLICATIONS: None. BLOOD LOSS: Minimal. DRAINS: [place] drain x1. DESCRIPTION OF PROCEDURE: The patient was brought to the operative suite and placed in supine position. After successful administration of general anesthesia, a longitudinal incision was made overlying the dorsum of the hand from the long finger back to the wrist. This was status sharp through the skin and full-thickness skin flaps down to the extensor tendons. There was some synovitis that was debrided. Cultures were obtained. There was significant synovitis about around the wrist. Once the wrist joint was opened, there was purulent material. This was cultured and then copiously irrigated with normal saline containing irrigant and Vashe irrigation. Once this was done, the [place] drain was placed in the wrist joint and exited the wound proximally. The wound was then reapproximated with interrupted nylon sutures. A sterile dressing was then applied. The patient tolerated the procedure well without complications. At the end of the procedure, all counts correct. The patient was transferred to the recovery room in stable condition. cc: Todd Giles MD
[2019-07-28] MEDS: DILAUDID ONE ×4 (14:34→14:50)
--- NOTE | 2019-07-28 14:47 | PROGRESS NOTE ---
DATE: 07/28/2019 INTERVAL HISTORY: Patient's left hand swelling and pain about the same. Currently n.p.o. for I and D in the operating room later today with Dr. Giles. No acute events overnight. No new complaints. REVIEW OF SYSTEMS: Twelve point review of systems negative except as per interval history. LABS: WBC 8.95, hemoglobin 12.8, hematocrit 38.7, platelets 263,000. Sodium 139, potassium 3.7, BUN 7, creatinine 0.9. VITAL SIGNS: T-max 99.3 degrees, pulse 89, respirations 16, blood pressure 151/99, O2 saturation 100% on room air. PHYSICAL EXAMINATION: General: No acute distress. Vital signs: As above. HEENT: Normocephalic, atraumatic. Moist mucous membranes. No cervical adenopathy. Cardiovascular: Regular rate and rhythm. No murmurs noted. Pulmonary: Clear to auscultation bilaterally. No wheezing, rales, or rhonchi. Abdomen: Soft, nontender, nondistended. Bowel sounds positive. Extremities: Peripheral pulses intact. No clubbing or cyanosis. Erythema of the dorsum of the left hand approximately stable. Edema remains increased from admission but about the same as yesterday. Still some mild tenderness. I do not notice the edema in his forearm as much today though. Neurologic: Cranial nerves grossly intact. No focal deficits. Psychiatric: Normal mood and affect. Awake, alert, oriented x3. ASSESSMENT AND PLAN: 1. Left hand cellulitis, possible left wrist pyogenic arthritis and/or abscess. Patient admitted with left hand erythema and swelling. Erythema has not changed significantly, but edema is significantly worse than on admission. It is about the same as yesterday, however. Orthopedics involved. Obtained MRI this morning which did not show any definite abscess, but did show some effusions of the distal radioulnar joint and carpal joints concerning for infection in the joint space. They plan on taking him to the OR today for incision and drainage and further evaluation. Initially placed on vancomycin, Rocephin. Rocephin was changed to Zosyn when his edema worsened. He has not had any further fevers and white count has come down, so will continue those antibiotics for now. 2. Tobacco use. Patient has been counseled on cessation. 3. Hyperglycemia, likely reactive. A1c within normal limits.
[2019-07-28] MEDS: LOVENOX SUBQ SCH (15:02)
[2019-07-28] MEDS ORDERED: NORCO-7.5 ONE (15:09)
[2019-07-28] MEDS: NORCO-7.5 PO PRN (15:12)
[2019-07-28] MEDS: LR 1,000 ML IV SCH (16:56)
[2019-07-29] MEDS: VANCOMYCIN 2 GM in NS 500 ML IV SCH ×3 (00:14→23:32)
[2019-07-29] MEDS: PERCOCET-10 PO PRN ×2 (02:23→08:27)
[2019-07-29] MEDS: NORCO-7.5 PO PRN ×2 (04:54→18:26)
[2019-07-29] MEDS: LR 1,000 ML IV SCH ×3 (04:55→20:28)
[2019-07-29] MEDS: ZOSYN 3.375 GM in NS 50 ML IV SCH ×4 (04:55→20:28)
[2019-07-29] MEDS: LOVENOX SUBQ SCH (08:28)
--- NOTE | 2019-07-29 14:57 | ORTHOPAEDICS PROGRESS NOTE ---
DATE: 07/29/2019 SUBJECTIVE: Carlos Hernandez is a 3-year-old male who is postoperative day 1 from I D of his left hand and wrist. He has no complaints. States he is feeling better. OBJECTIVE: He is a well-developed, well-nourished male. He is alert, oriented, and cooperative exam. His dressing is clean, dry, intact. His fingers are neurovascularly intact. He can flex and extend his fingers and wrist. His laboratory results reveal a Gram stain was negative and his cultures are pending. ASSESSMENT: Left septic wrist. PLAN: Continue his IV antibiotics for now. I will change his dressing and remove his drain tomorrow. He can probably be discharged home on or Sunday the depending on the results of the culture. cc: Todd Giles MD
--- NOTE | 2019-07-29 17:44 | PROGRESS NOTE ---
DATE: 07/29/2019 SUBJECTIVE: Patient has no major complaints. OBJECTIVE: Blood pressure is 151/77, heart rate of 82, respiratory rate of 17, temperature 98.2 degrees, 100% on room air.Cardiovascular: Regular rate and rhythm. Pulmonary: Bilateral breath sounds clear to auscultation. GI: Soft, nontender, nondistended. Bowel sounds were positive. LABORATORY DATA: White count is 8, that was as of 2 days ago. PROBLEM LIST: Cellulitis and abscess of the left hand status post incision and drainage per Ortho. He seems to be doing okay. He is clinically on vancomycin and Zosyn and he is stabilized. His cultures unfortunately have not grown out anything and that was blood and then he had multiple cultures done on the I think during the I and D process but so far those are negative including Gram stains so hopefully tomorrow, problem is if his cultures do not grow out anything I think we will probably just have to cover for staph or strep, apparently improved with Zosyn so we may need to do a combination of possibly Augmentin with doxycycline at the discretion of orthopedics. They will examine him tomorrow and decide about possibly going home. cc: Pardeep Martinez MD
[2019-07-30] MEDS: PERCOCET-10 PO PRN ×2 (01:40→09:12)
[2019-07-30] MEDS: ZOSYN 3.375 GM in NS 50 ML IV SCH ×2 (02:40→09:12)
[2019-07-30 07:25] VITALS: BP 152/87
--- NOTE | 2019-07-30 08:57 | DISCHARGE SUMMARY ---
ADMISSION DATE: 07/25/2019 DISCHARGE DATE: 07/30/2019 DISCHARGE DIAGNOSIS: Left hand cellulitis and wrist septic joint, status post irrigation and debridement of the wrist and dorsum of the hand. DISCHARGE MEDICATIONS: Bactrim and Percocet. DISPOSITION: The patient discharged home with wound instructions, instructed to elevate and ice his hand. Return for any signs or symptoms of worsening. He is to return to me in the clinic next Sunday. HOSPITAL COURSE: On the day of admission, the patient was diagnosed with cellulitis of his hand. It continued to worsen despite IV antibiotics. MRI showed fluid in the joint and cellulitis. He underwent irrigation and debridement of his hand and wrist on this past Sunday. Postoperatively, he has done well. His cultures have been negative. His wound was clean, dry, intact. Today he still had some swelling, but the erythema and swelling were much diminished. IMPRESSION: Improved cellulitis and erythema, left hand and wrist. PLAN: I will send him home with Bactrim and Percocet. He will return to see me next Sunday. cc: Todd Giles MD
[2019-07-30] MEDS: LOVENOX SUBQ SCH (09:13)
== END 2019-07-30 10:27 | disposition home or self-care (01) | DRG 506 ==
LOC: ED 02:19 → 3N 02:20 → SUATTDRO 02:20
PROVIDERS: ATTEND Internal Medicine